=== PATIENT | male | born 1960 | race Caucasian/White ===

== ENCOUNTER 2020-03-14 04:56 | Day surgery (SDC) | payer OTHER ==
[2020-03-12 17:14] VITALS: BMI 30.4
[~2020-03-14 04:56] MED LIST: LACTATED RINGERS SOLUTION 1,000 ML IV SCH; ONDANSETRON 4 MG/2 ML VIAL IVPUSH PRN; oxyCODONE HCL 5 MG TABLET PO PRN
[2020-03-14] MEDS ORDERED: POVIDONE-IODINE OINTMENT 10% - 28.4 GM TUBE ONE (07:48)
[2020-03-14] MEDS ORDERED: LIDOCAINE HCL 1%, 10 MG/ML (20ML VIAL) ONE (07:48)
[2020-03-14] MEDS ORDERED: BENZOIN/ALOE VERA/STORAX/TOLU 58 ML BOTTLE ONE (07:48)
[2020-03-14] MEDS ORDERED: BUPIVACAINE HCL 100 ML ONE (07:49)
[2020-03-14] MEDS ORDERED: DEXAMETHASONE SOD PHOSPHATE 4 MG/1 ML VIAL ONE ×3 (07:50→09:34)
[2020-03-14] MEDS ORDERED: PROPOFOL 20 ML ONE ×3 (08:37)
[2020-03-14] MEDS ORDERED: KETOROLAC TROMETHAMINE 30 MG/1 ML VIAL ONE (08:39)
[2020-03-14] MEDS ORDERED: ceFAZolin SODIUM 1 GM VIAL ONE (08:40)
[2020-03-14] MEDS ORDERED: MIDAZOLAM HCL 2 MG/2 ML SINGLE DOSE VIAL ONE ×2 (08:41)
[2020-03-14] MEDS ORDERED: ceFAZolin SODIUM 1 GM VIAL IVPB ONE ×2 (08:50→09:28)
[2020-03-14] MEDS ORDERED: LIDOCAINE HCL 1%, 10 MG/ML (20ML VIAL) NR ONE (08:55)
[2020-03-14] MEDS ORDERED: BUPIVACAINE HCL/PF 0.5% (5 MG/ML) 30 ML VIAL IJ ONE ×2 (08:55→09:36)
[2020-03-14] MEDS ORDERED: SUCCINYLCHOLINE CHLORIDE 200 MG/10 ML SYRINGE ONE (09:10)
[2020-03-14] MEDS ORDERED: SEVOFLURANE 250 ML BTL ONE (09:33)
[2020-03-14] MEDS ORDERED: DESFLURANE GAS 240 ML BOTTLE IH ONE (09:33)
[2020-03-14] MEDS ORDERED: DEXAMETHASONE SOD PHOSPHATE 10 MG/1 ML VIAL IVPUSH ONE (09:37)
[2020-03-14 11:47] VITALS: BP 127/73; PULSE 78; TEMP 98.1
--- NOTE | 2020-03-15 13:03 | OP ---
DATE OF ADMISSION: 03/14/2020 SURGEON: Macario Salas DPM WHEAT COMBINE DRIVER: Alfa Conley DPM SECOND WHEAT COMBINE DRIVER: , resident PREOPERATIVE DIAGNOSIS: Painful left hammertoes 2, 3, and 4. POSTOPERATIVE DIAGNOSIS: Painful left hammertoes 2, 3, and 4. OPERATION: Left proximal arthroplasty, left 2nd digit; distal arthroplasty, left 3rd digit; proximal arthroplasty, left 4th digit. TYPE OF ANESTHESIA: Local, MAC. Approximately 20 mL of 1:1 lidocaine 1%, 0.5% Marcaine was given in and around the proposed injection sites. ESTIMATED BLOOD LOSS: 10 mL. Hemostasis achieved with ankle tourniquet at 250 torr. DESCRIPTION OF PROCEDURE: The patient was brought to the operating room and placed supine on the operating room table. After adequate IV sedation was administered, the previously mentioned 1:1 local infiltrative block was given in and around the injection sites. The foot was then prepped and draped in the usual aseptic fashion. Attention was then directed towards an elliptical incision in line with the long axis of the 2nd digit overlying the proximal interphalangeal joint. Dissection was meticulously carried down to the level of capsule, with all vital structures identified and retracted. The extensor tendon was identified and incised just distal to the head of the proximal phalanx. It was reflected inferiorly proximally, away from the proximal aspect of the 2nd phalangeal head. Soft tissue was freed and cleared around the phalangeal head, allowing the oscillating bone saw to remove the head of the 2nd proximal phalanx perpendicular to the long axis of bone, providing for a rectus digit after closure. This area was the copiously irrigated after removal of the bone. The extensor tendon was then reapproximated utilizing 3-0 Vicryl simple stitch fashion. The skin was then closed utilizing 4-0 nylon in simple stitch fashion. Attention was then directed to the 3rd digit, where a transverse elliptical incision was placed over the distal interphalangeal joint of the 3rd digit left foot. This dissection was carried down to the level of bone meticulously, with all vital structures identified and retracted. After identification of the extensor tendon, this was excised just distal to the head of the proximal phalanx, was reflected utilizing sharp dissection and a [place], dissecting it proximally from the head of 3rd middle phalangeal joint. An oscillating bone saw was utilized to remove and excise the head of the middle phalanx, 3rd digit perpendicular to the long axis of the joint, providing for a rectus toe after closure. The area was then copiously irrigated with normal saline. The extensor tendons were reapproximated using 3-0 Vicryl, and the skin was closed with 4-0 nylon simple stitch fashion. Attention was then directed towards the 4th digit, left foot, where a teardrop-type incision was planned with an extended lateral base over the proximal phalangeal joint, 4th toe. This incision was then meticulously carried down to the level of joint capsule, with all vital structures identified and retracted. The extensor tendon was then excised distal to the head of the proximal phalanx and reflected proximally from the proximal phalanx, allowing for an oscillating bone saw to remove a small portion of the head of the proximal phalanx. This cut angulated more, with the proximal aspects being lateral and the distal aspects being medial so that the toe would be in more rectus orientation upon closure. The area was then copiously irrigated with normal saline. Extensor tendons were then reapproximated using 3-0 Vicryl, and the skin was closed in simple stitch fashion with 4-0 nylon. Betadine and Adaptic were used over the incisions. Several layers of dry sterile dressing, gauze, Jayden, and an Rakesh bandage with minimal compression were utilized. Postoperative shoe was given. The patient tolerated the above anesthesia and surgical procedure well and left the operating room to the recovery area with vital signs stable, vascular status intact to the remaining digits of the left foot. Capillary fill time was done before transfer to PACU, noting that there was good blood return to all digits. dictating for SOPHIA Gary DPM [id number]
--- NOTE | 2020-03-15 16:16 | PATH ---
Surgical Pathology Report Patient Name: FRANCESCO ZAPIEN [facility]. Rec. #: [id number] /Age/Gender: 1960 (Age: 59) / M Account: [id number] Location: [facility] SURGICAL Taken: 03/14/2020 Received: 03/14/2020 Reported: 03/15/2020 Physicians: Macario Salas DPM Specimen(s) Received A: SKIN AND BONE SECOND TOE LEFT FOOT B: SKIN AND BONE THIRD TOE LEFT FOOT C: SKIN AND BONE FOURTH TOE LEFT FOOT Clinical History Hammer toe deformity second, third, fourth digits left foot Final Diagnosis A. SKIN AND BONE, SECOND TOE LEFT FOOT, EXCISION: PORTION OF BONE WITH FATTY MARROW, UNREMARKABLE. SEPARATE PORTION OF SKIN WITH HYPERKERATOSIS. B. SKIN AND BONE, THIRD TOE LEFT FOOT, EXCISION: PORTION OF BONE WITH FATTY MARROW SHOWING FOCAL DEGENERATIVE CHANGE. SEPARATE PORTION OF SKIN WITH HYPERKERATOSIS. C. SKIN AND BONE, FOURTH TOE LEFT FOOT, EXCISION: PORTION OF BONE WITH FATTY MARROW SHOWING FOCAL DEGENERATIVE CHANGE. SEPARATE PORTION OF SKIN WITH HYPERKERATOSIS. Electronically Signed Kallie Ayala M.D. Gross Description A. Received in formalin labeled "skin and bone second toe left foot," is a 1.4 x 0.7 x 0.6 cm beasley, irregular portion of bone. Also received within the same container is a 1.6 x 1.0 cm beasley, elliptical, unoriented portion of skin with a central depressed lesion. [employer] sections are submitted in one cassette, following decalcification. B. Received in formalin labeled "skin and bone third toe left foot," is a 0.9 x 0.4 x 0.3 cm beasley, irregular portion of bone. Also received within the same container is a 0.8 x 0.5 cm beasley, elliptical, unremarkable portion of skin. [employer] sections are submitted in one cassette, following decalcification. C. Received in formalin labeled "skin and bone fourth digit left foot," is a 0.8 x 0.5 x 0.4 cm beasley, irregular portion of bone. Also received within the same container is a 1.3 x 0.5 cm beasley, elliptical, unremarkable portion of skin. [employer] sections are submitted in one cassette, following decalcification. /03/14/2020 saudi/03/14/2020
== END 2020-03-14 11:48 | disposition home or self-care (01) ==
LOC: JASU-SURG 04:56
PROVIDERS: ATTEND Podiatrist
PROC: 0SRQ0JZ Replacement of Left Toe Phalangeal Joint with Synthetic Substitute, Open Approach (ICD-10-PCS; principal; 2020-03-14 08:30)
DX: M20.42 Other hammer toe(s) (acquired), left foot (principal)
CPT/HCPCS: 73630-TC-LT; 88304-TC; 88311-TC; J1100